=== PATIENT | female | born 1985 | race Two or more races ===

== ENCOUNTER 2019-12-03 14:27 | Emergency (ER) | payer OTHER, MEDICAID ==
[~2019-12-03] VITALS: Ht 154.9 cm; Wt 54.4 kg
[~2019-12-03 14:27] MED LIST: ABILIFY2 MG ORAL; CEPHALEXIN500 MG PO; CIPRO500 MG PO
[2019-12-03 14:42] VITALS: BP 133/86
--- NOTE | 2019-12-03 14:42 | NUR ---
ED Nurse Note: pt arrived with ra [id number] due to medication refill for risperidol 4 mg
--- NOTE | 2019-12-03 15:42 | NUR ---
ED Nurse Note: SPOKE WITH DHARA LEWIS @ [phone]
--- NOTE | 2019-12-03 16:16 | Emergency Room Report ---
History of Present Illness General Chief Complaint: Behavioral Complaint Present Illness HPI 34-year-old female presents to the emergency department complaining of need for medication refill for respiratory. Patient is also stating that she feels that her symptoms of bipolar and schizophrenia are not well controlled at this time and that she feels she needs additional medication management. Patient reports she took 2 mg of Risperdal this a.m. however she is post to take 4 mg daily. Patient states that she called 911 because she began feeling scared and had increase in sadness. Patient denies suicidal ideations or PSAs in the past. Patient was hospitalized once at [facility]. She denies any other psychiatric medication trials. She denies illicit drug use or recent drug use she states she tried illicit drugs in her teenage years but nothing since adulthood. Patient reports last time she met with her psychiatrist was a month ago. Has a history of hypothyroid and takes Synthroid. Her mother was also contacted who was unaware that she was brought to the ER by 911. She states that she typically sees Dr. Laron Beckford and endorses that yes her daughter was seen a month ago. The patient reports having symptoms of depression she denies auditory hallucinations or seeing things that are not there. She denies manic symptoms. She denies . Allergies: Coded Allergies: No Known Allergies (Unverified , 02/24/13) Patient History Past Medical History: see triage record, psych hx, other - hypothyroid Past Surgical History: none Pertinent Family History: unable to obtain Last Menstrual Period: UNABLE TO RECALL Now: No Reviewed Nursing Documentation: PMH: Agreed; PSxH: Agreed Review of Systems All Other Systems: limited - Pt. had difficulty describing her current symptoms. Physical Exam Vital Signs Date Time Temp Pulse Resp B/P (MAP) Pulse Ox O2 Delivery O2 Flow Rate FiO2 12/03/19 14:23 99.0 100 18 118/84 (95) 96 Room Air Sp02 EP Interpretation: reviewed, normal General Appearance: no apparent distress, alert, GCS 15, non-toxic, lethargic Head: normocephalic, atraumatic Eyes: bilateral eye normal inspection, bilateral eye PERRL ENT: hearing grossly normal, normal voice Neck: full range of motion Respiratory: chest non-tender, lungs clear, normal breath sounds, no respiratory distress, no wheezing, speaking full sentences Cardiovascular #1: regular rate, rhythm Gastrointestinal: normal bowel sounds, non tender, soft, non-distended, no guarding Genitourinary: normal inspection, no CVA tenderness Musculoskeletal: back normal, normal range of motion, gait/station normal, non- tender Neurologic: alert, motor strength/tone normal, oriented x3, sensory intact, responsive, speech normal Psychiatric: mood/affect normal - very flattened affect. difficulty with providing specific details. best at only answering yes or no questions. , no suicidal/homicidal ideation, no delusions, other - pt. has to be re-directed several times when asked questions. She is easily distracted yet has a flattened affect. On occasion stares off blankly. Does not demonstrate anxiousness or to be responding to any internal stimuli. Suicide Risk Assessment: Suicidal Ideation: No Had intent to initiate attempt: No Pt's plan for suicide attempt: No Has means to complete attempt: No Skin: other - no evidence of lacerations or previous cutting habbits. no obvious previous PSA wounds. Medical Decision Making PA Attestation Dr. Kincaid is my supervising Physician whom patient management has been discussed with. Diagnostic Impression: Primary Impression: Behavioral disorder Additional Impression: Medication refill ER Course 34-year-old female presents to the emergency department complaining of need for medication refill for respiratory. Patient is also stating that she feels that her symptoms of bipolar and schizophrenia are not well controlled at this time and that she feels she needs additional medication management. Patient reports she took 2 mg of Risperdal this a.m. however she is post to take 4 mg daily. Patient states that she called 911 because she began feeling scared and had increase in sadness. Patient denies suicidal ideations or PSAs in the past. Patient was hospitalized once at [facility]. She denies any other psychiatric medication trials. She denies illicit drug use or recent drug use she states she tried illicit drugs in her teenage years but nothing since adulthood. Patient reports last time she met with her psychiatrist was a month ago. Has a history of hypothyroid and takes Synthroid. Her mother was also contacted who was unaware that she was brought to the ER by 911. She states that she typically sees Dr. Laron Beckford and endorses that yes her daughter was seen a month ago. The patient reports having symptoms of depression she denies auditory hallucinations or seeing things that are not there. She denies manic symptoms. She denies . Pt has a very flattened affect but is restless and pacing. She answers questions but provides little to no details beyond yes or no answers. Ddx considered but are not limited to OD, SI/HI, psychosis, UTI, intoxication, bi-polar, depression just to name a few. Vital signs: are WNL, pt. is afebrile H&PE are most consistent with behavioral/mental health issue ORDERS: none required at this time. Pt. is NAD, non-toxic in appearance. Is not demonstrating having acute psychosis. Patient has calm and cooperative. Patient is not on any psychiatric hold. ED INTERVENTIONS: - Psychiatric Consult: Dr. Cortes. given pt. not on a hold and no SI/HI. D/w Dr. Cortes pt. current medications and current c/o /symptoms. ----- Per Dr. Cortes, pt. stable for outpatient mental health follow up and eval. She recommends starting the pt. on 10mg Lexapro daily qam and to continue 4mg Risperdal. -- Mother was contacted and made aware that pt. is in the ED, she also endorsed the patients medical hx and current medications. -- Awaiting mother's arrival for d/c and to discuss appropriate close psychiatric outpatient follow up. As well as to give [facility] mental health resource information and to begin new medication. DISPOSITION: ELOPED prior to arrival of her mother. Last Vital Signs Date Time Temp Pulse Resp B/P (MAP) Pulse Ox O2 Delivery O2 Flow Rate FiO2 12/03/19 14:42 88 19 12/03/19 14:42 98.3 133/86 98 Room Air Disposition: ELOPED Condition: Stable Physician Consult: Dr. Cortes ( psychiatry) Patient Instructions: Bipolar Disorder Additional Instructions: Take medications as directed. Continue previously prescribed medications as directed. Follow up with a Mental Health Specialist/ Psychiatrist in 3 days, even if your symptoms have resolved. --Please review [facility] resource information provided Return sooner to ED if new symptoms occur, or current symptoms become worse. - Please note that this Emergency Department Report was dictated using [employer] wheel setter technology software, occasionally this can lead to erroneous entry secondary to interpretation by the dictation equipment. Lauren Galicia Dec 03, 2019 16:16
--- NOTE | 2019-12-03 18:05 | NUR ---
ELOPEMENT: pt aox4, no acute distress noted. pt left with ericawhich. pt did not want to wait for mother to be picked up. pt left er.
== END 2019-12-03 18:20 | disposition left against medical advice (07) ==
LOC: EDBD 14:27 → EMR 18:05
DX: F91.9 Conduct disorder, unspecified (principal); Z76.0 Encounter for issue of repeat prescription; F31.9 Bipolar disorder, unspecified; F20.9 Schizophrenia, unspecified; E03.9 Hypothyroidism, unspecified; Z79.899 Other long term (current) drug therapy
CPT/HCPCS: 99282